=== PATIENT | male | born 1995 | race Caucasian/White ===

== ENCOUNTER 2019-10-05 18:27 | Emergency (ER) | payer OTHER ==
[2019-10-05 18:36] VITALS: BP 135/82
[2019-10-05] MEDS ORDERED: Ibuprofen TAB* 600 MG PO ONE (18:37)
--- NOTE | 2019-10-05 18:49 | UC ---
Knee Pain HPI - HPI Summary HPI Summary: Patient is a 24yo male presenting with girlfriend for right knee pain after he states he fell on ice right before coming in. 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 Patient states he had to "pop knee cap back into place." Also states his "knee cap was all the way over to the right with a big buldge" until he "pushed it back." Notes anterior knee pain and lateral knee swelling. States he can walk on it, but it hurts worse. Notes he can flex the knee but "very slowly and not fully d/t pain." Denies radiating pain. Denies numbness and tingling. 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 RIGHT knee meniscus repair - Family History Known Family History: Positive: Hypertension, Non-Contributory - Social History Lives: With Family Alcohol Use: Rare Substance Use Type: None Smoking Status (MU): Never Smoked Tobacco - Immunization History Most Recent Influenza Vaccination: 2016 Most Recent Tetanus Shot: UTD Most Recent Pneumonia Vaccination: N/A Vaccination Up to Date: Yes Review of Systems All Other Systems Reviewed And Are Negative: No Skin: Negative: Bruising Respiratory: Positive: Negative Cardiovascular: Positive: Negative Gastrointestinal: Positive: Negative Neurovascular: Positive: Negative Musculoskeletal: Positive: Arthralgia - R knee, Decreased ROM - R knee flexion d /t pain, Edema - R lateral knee Neurological: Negative: Paresthesia, Numbness Physical Exam Appearance: Well-Appearing, Well-Nourished, Pain Distress Vital Signs: Initial Vital Signs Temp 98.7 F 10/05/19 18:34 Pulse 91 10/05/19 18:34 Resp 18 12/04/19 18:34 BP 135/82 10/05/19 18:34 Pulse Ox 97 10/05/19 18:34 Vital Signs Reviewed: Yes Eyes: Positive: Conjunctiva Clear ENT: Positive: Hearing grossly normal Neck: Positive: Supple Respiratory: Positive: No respiratory distress Cardiovascular: Positive: Pulses Normal - strong pedal pulses b/l, Brisk Capillary Refill Musculoskeletal: Positive: ROM Intact - R knee extension, Strength Limited @ - R knee flexion and extension d/t pain, ROM Limited @ - R knee flexion d/t pain, Edema @ - anterolateral R knee, Other: - patella diffusely tender to palpation. patella in normal alignment Neurological Exam: Other - sensation grossly intact Neurological: Positive: Alert Psychological: Positive: Age Appropriate Behavior Skin Exam: Normal - no erythema or eccymosis noted. vertical scar noted over patella from past surgery Diagnostics - Radiology R knee Radiology Interpretation Completed By: ED Physician Summary of Radiographic Findings: negative fx Knee Pain Course/Dx - Course Course Of Treatment: Discussed initial negative xray read and that final report will be obtained tomorrow. Patient placed in knee immobilizer and given crutches and instructed to follow up with ortho as soon as possible for further evaluation. Patient voiced understanding and agreed with treatment plan. - Differential Dx/Diagnosis Differential Diagnosis/HQI/PQRI: Contusion, Dislocation, Sprain, Strain Provider Diagnosis: Pain of right knee after injury Discharge ED - Sign-Out/Discharge Documenting (check all that apply): Patient Departure All imaging exams completed and their final reports reviewed: No - Discharge Plan Condition: Stable Disposition: HOME Patient Education Materials: Knee Pain (ED), Patellar Dislocation (ED) Forms: *Work Release Referrals: Jorje Perkins MD [Medical Doctor] - As Soon As Possible Additional Instructions: As discussed, the initial read of the x-rays did not show any fractures. The final report will be obtained in the morning will be notified with any abnormalities. Keep the knee immobilizer on and use the crutches to avoid bearing weight until you are able to follow up with orthopedics listed below. Continue to rest, ice, and elevate the knee. You may also continue to take ibuprofen for pain relief. Follow up with orthopedics as soon as possible for further evaluation. - Billing Disposition and Condition Condition: STABLE Disposition: Home
--- NOTE | 2019-10-06 11:38 | ED ---
Progress - Progress Note Progress Note: Final xray read reviewed: No Fx. Course/Dx - Diagnoses Provider Diagnoses: Pain of right knee after injury Discharge ED - Sign-Out/Discharge Documenting (check all that apply): Patient Departure All imaging exams completed and their final reports reviewed: Yes - Discharge Plan Condition: Stable Disposition: HOME Patient Education Materials: Knee Pain (ED), Patellar Dislocation (ED) Forms: *Work Release Referrals: Jorje Perkins MD [Medical Doctor] - As Soon As Possible Additional Instructions: As discussed, the initial read of the x-rays did not show any fractures. The final report will be obtained in the morning will be notified with any abnormalities. Keep the knee immobilizer on and use the crutches to avoid bearing weight until you are able to follow up with orthopedics listed below. Continue to rest, ice, and elevate the knee. You may also continue to take ibuprofen for pain relief. Follow up with orthopedics as soon as possible for further evaluation. - Billing Disposition and Condition Condition: STABLE Disposition: Home
== END 2019-10-05 19:25 | disposition home or self-care (01) ==
LOC: UCCORT 18:27
DX: M25.561 Pain in right knee (principal); S89.91XA Unspecified injury of right lower leg, initial encounter; W00.9XXA Unspecified fall due to ice and snow, initial encounter; Y92.9 Unspecified place or not applicable
CPT/HCPCS: 99213; A9270-GY; G0463